=== PATIENT | female | born 1930 | race Caucasian/White ===

== ENCOUNTER 2016-10-14 17:38 | Inpatient (IN) | payer OTHER ==
[~2016-10-14] VITALS: Ht 160 cm; Wt 45.8 kg
[~2016-10-14 17:38] MED LIST: ALPRAZOLAM0.25 MG PO; AMIODARONE HCL200 MG PO; AMLODIPINE BESY10 M1 PO; ASPIR LOW81 MG PO; IMDUR30 MG PO; K10 PO; LAC PO; LASIX40 MG PO; LEV500 PO; LOVAZA1 G1 PO; MOTRIN800 MG PO; PRILOSEC20 MG PO; ZOCOR20 MG PO
[2016-10-14 17:59] LABS: BASOPHIL % 0.6 % (0-2); PLATELET COUNT 199 x10^3mcL (130-400); RED CELL DISTRIBUTION WIDTH 13.7 % (11.5-14.5)
[2016-10-14 18:11] LABS: CALCIUM 10.3 mg/dL (8.5-10.1); CARBON DIOXIDE 29.1 mmol/L (21-32); CHLORIDE SERUM 101 mmol/L (98-107); CREATININE SERUM 1.2 mg/dL (0.6-1.0); GLUCOSE SERUM 121 mg/dL (74-106); POTASSIUM SERUM 3.8 mmol/L (3.5-5.1); SODIUM SERUM 143 mmol/L (136-145)
[2016-10-14 18:15] LABS: ALBUMIN 4.6 g/dL (3.4-5.0); ALKALINE PHOSPHATASE 106 U/L (46-116); ALT/SGPT 13 U/L (14-59); AST/SGOT 19 U/L (15-37); BILIRUBIN TOTAL 0.8 mg/dL (0.20-1.00); TOTAL PROTEIN, SERUM 8.2 g/dL (6.4-8.2)
[2016-10-14 21:00] LABS: MAGNESIUM 2.1 mg/dL (1.8-2.4); PHOSPHOROUS 3.7 mg/dL (2.5-4.9)
[2016-10-14 21:08] LABS: T3 TOTAL 1.79 ng/mL
[2016-10-14 21:10] LABS: FREE T4 1.87 ng/dL (0.76-1.46)
[2016-10-14 21:12] LABS: CHOLESTEROL/HDL RATIO 1.9
[2016-10-14 21:13] LABS: FREE THYROXINE INDEX 4.7 ug/dL (1.4-4.5); T4(THYROXINE) 13.5 ug/dL (4.7-13.3)
[2016-10-14 21:40] VITALS: BP 143/74
[2016-10-14 21:56] VITALS: BP 143/74
[2016-10-15 06:12] LABS: CALCIUM 8.9 mg/dL (8.5-10.1); CARBON DIOXIDE 30.7 mmol/L (21-32); CHLORIDE SERUM 108 mmol/L (98-107); CREATININE SERUM 0.8 mg/dL (0.6-1.0); GLUCOSE SERUM 91 mg/dL (74-106); MAGNESIUM 1.8 mg/dL (1.8-2.4); PHOSPHOROUS 3.6 mg/dL (2.5-4.9); POTASSIUM SERUM 3.6 mmol/L (3.5-5.1); SODIUM SERUM 145 mmol/L (136-145)
[2016-10-15 06:19] LABS: BASOPHIL % 0.4 % (0-2); PLATELET COUNT 160 x10^3mcL (130-400); RED CELL DISTRIBUTION WIDTH 13.9 % (11.5-14.5)
[2016-10-15 06:44] VITALS: BP 118/60
[2016-10-15 08:30] VITALS: BP 121/60
[2016-10-15 12:49] VITALS: BP 115/48
[2016-10-15 14:24] LABS: urine erythrocyte NEGATIVE (NEGATIVE)
[2016-10-15 14:34] LABS: microscopic required? YES
[2016-10-15 16:49] VITALS: BP 103/42
[2016-10-15 19:25] VITALS: BP 108/45
[2016-10-15 22:33] VITALS: BP 106/45
[2016-10-16 06:11] LABS: BASOPHIL % 0.3 % (0-2); PLATELET COUNT 136 x10^3mcL (130-400); RED CELL DISTRIBUTION WIDTH 13.6 % (11.5-14.5)
[2016-10-16 06:30] LABS: CALCIUM 8.2 mg/dL (8.5-10.1); CARBON DIOXIDE 26.8 mmol/L (21-32); CHLORIDE SERUM 107 mmol/L (98-107); CREATININE SERUM 0.7 mg/dL (0.6-1.0); GLUCOSE SERUM 67 mg/dL (74-106); MAGNESIUM 1.7 mg/dL (1.8-2.4); POTASSIUM SERUM 3.3 mmol/L (3.5-5.1); SODIUM SERUM 142 mmol/L (136-145)
[2016-10-16 06:36] VITALS: BP 108/49
[2016-10-16 09:55] VITALS: BP 93/37
[2016-10-16 12:37] VITALS: BP 98/49
[2016-10-16 12:49] VITALS: BP 112/79
[2016-10-16] MEDS ORDERED: ZOFRAN ODT4 MG SL (13:49)
[2016-10-16] MEDS ORDERED: COLACE100 MG PO (13:49)
[2016-10-16] MEDS ORDERED: LACTULOSE10 GM/152 PO (13:49)
[2016-10-16 13:54] VITALS: BP 93/37
== END 2016-10-16 15:25 | disposition home or self-care (01) | DRG 392 ==
LOC: ED 17:38 → DU 20:22
PROVIDERS: Emergency Medicine; ADMIT Family Medicine
DX: K21.9 Gastro-esophageal reflux disease without esophagitis (principal); Z68.1 Body mass index [BMI] 19.9 or less, adult; Z66 Do not resuscitate; A08.4 Viral intestinal infection, unspecified; I71.4 Abdominal aortic aneurysm, without rupture; I70.0 Atherosclerosis of aorta; I10 Essential (primary) hypertension; E11.9 Type 2 diabetes mellitus without complications; E05.90 Thyrotoxicosis, unspecified without thyrotoxic crisis or storm; M99.53 Intervertebral disc stenosis of neural canal of lumbar region; M81.0 Age-related osteoporosis without current pathological fracture; M19.90 Unspecified osteoarthritis, unspecified site; K57.30 Diverticulosis of large intestine without perforation or abscess without bleeding; I25.2 Old myocardial infarction; Z95.0 Presence of cardiac pacemaker
CPT/HCPCS: 83880; 84439; J2270; J2405; J3490; J7030; Q0092

== ENCOUNTER 2017-09-13 20:05 | Emergency (ER) | payer OTHER ==
[~2017-09-13] VITALS: Ht 160 cm; Wt 49.4 kg
[~2017-09-13 20:05] MED LIST changes: +COLACE100 MG PO; +LACTULOSE10 GM/152 PO; +ZOFRAN ODT4 MG SL
[2017-09-13 20:51] VITALS: BP 172/73; Ht 160 cm; Wt 49.4 kg
== END 2017-09-13 22:47 | disposition home or self-care (01) ==
LOC: ED 20:05
DX: S80.01XA Contusion of right knee, initial encounter (principal); E78.00 Pure hypercholesterolemia, unspecified; I10 Essential (primary) hypertension; I48.91 Unspecified atrial fibrillation; I25.2 Old myocardial infarction; Z95.0 Presence of cardiac pacemaker; Z88.8 Allergy status to other drugs, medicaments and biological substances; Z88.0 Allergy status to penicillin; Z86.79 Personal history of other diseases of the circulatory system; W18.30XA Fall on same level, unspecified, initial encounter; Y93.89 Activity, other specified; Y92.89 Other specified places as the place of occurrence of the external cause; Y99.8 Other external cause status
CPT/HCPCS: J3010

== ENCOUNTER 2018-02-11 17:35 | Emergency (ER) | payer OTHER ==
[~2018-02-11] VITALS: Ht 160 cm; Wt 49.4 kg
[2018-02-11 17:46] VITALS: Ht 160 cm; Wt 49.4 kg
[2018-02-11 19:30] VITALS: BP 137/74
== END 2018-02-11 19:39 | disposition home or self-care (01) ==
LOC: ED 17:35
DX: S52.572A Other intraarticular fracture of lower end of left radius, initial encounter for closed fracture (principal); S82.001A Unspecified fracture of right patella, initial encounter for closed fracture; I10 Essential (primary) hypertension; Z90.09 Acquired absence of other part of head and neck; E78.00 Pure hypercholesterolemia, unspecified; Z90.710 Acquired absence of both cervix and uterus; Z90.10 Acquired absence of unspecified breast and nipple; Z95.0 Presence of cardiac pacemaker; Z90.49 Acquired absence of other specified parts of digestive tract; I49.9 Cardiac arrhythmia, unspecified; Z88.0 Allergy status to penicillin; Z88.8 Allergy status to other drugs, medicaments and biological substances; W18.30XA Fall on same level, unspecified, initial encounter; Y93.89 Activity, other specified; Y92.89 Other specified places as the place of occurrence of the external cause; Y99.8 Other external cause status
CPT/HCPCS: A4570; J1885